=== PATIENT | female | born 1950 | race Two or more races ===

== ENCOUNTER 2019-03-07 10:10 | Emergency (ER) | payer MEDICAID ==
[~2019-03-07] VITALS: Ht 149.9 cm; Wt 62.5 kg
[~2019-03-07 10:10] MED LIST: DIAZ5TAB PO; GLUC100017 PO; IBUP-1985 PO; MECL-111 PO; MESA400C2 PO; ONDA4TAB6 PO; SIMV20TA PO; [UNRECOGNIZED DRUG - CODE] PO
[2019-03-07 10:51] LABS: CLARITY,URINE CLEAR (Clear); COLOR,URINE YELLOW (Yellow); GLUCOSE, URINE 500 mg/dl (Neg); KETONES,URINE NEGATIVE (Neg); LEUKOCYTE ESTERASE ,URINE NEGATIVE (Neg); NITRITES, URINE NEGATIVE (Neg); OCCULT BLOOD,URINE SMALL (Neg); PROTEIN,URINE >=300 mg/dl (Neg); UROBILINOGEN,URINE 0.2 E.U/dL (0.2-1.0)
[2019-03-07 10:55] LABS: UA COLLECTION TYPE CLN CATCH MIDSTREAM
[2019-03-07 10:57] LABS: BASOPHILS % (AUTO) 0.1 % (0-1); EOSINOPHILS # (AUTO) 0.1 X10'3 (0-0.9); EOSINOPHILS % (AUTO) 0.9 % (0-6); HEMATOCRIT 29.9 % (35.0-45.0); HEMOGLOBIN 10.4 g/dl (12.0-16.0); LYMPHOCYTES # (AUTO) 0.8 X10'3 (1.1-4.8); LYMPHOCYTES % (AUTO) 8.3 % (21-51); MEAN CORPUSCULAR HEMOGLOBIN 33.3 PG (27.0-31.0); MEAN CORPUSCULAR HGB CONC 34.7 g/dL (33.0-36.5); MEAN CORPUSCULAR VOLUME 95.8 FL (78-98); MEAN PLATELET VOLUME 8.4 FL (7.4-10.4); MONOCYTES # (AUTO) 0.1 X10'3 (0-0.9); MONOCYTES % (AUTO) 1.1 % (2-12); NEUTROPHILS # (AUTO) 8.7 X10'3 (1.8-7.7); NEUTROPHILS % (AUTO) 89.6 % (42-75); PLATELET COUNT 224 X10'3 (140-440); RED BLOOD COUNT 3.12 X10'6 (4.20-5.60); RED CELL DISTRIBUTION WIDTH 13.7 % (11.5-14.5); WHITE BLOOD COUNT 9.7 X10'3 (4.5-11.0)
[2019-03-07 10:59] LABS: BACTERIA,URINE 2+ /HPF (Neg); SQUAMOUS EPITHELIAL CELL,UR MODERATE /LPF (FEW)
[2019-03-07 11:11] LABS: ALANINE AMINOTRANSFERASE 36 U/L (12-78); ALBUMIN/GLOBULIN RATIO 0.5 (1.1-1.5); ALKALINE PHOSPHATASE 191 IU/L (46-116); AMYLASE 74 U/L (25-115); ANION GAP 8 (8-16); ASPARTATE AMINO TRANSFERASE 38 U/L (10-37); BILIRUBIN,TOTAL 0.4 MG/DL (0.1-1.0); BLOOD UREA NITROGEN 39 MG/DL (7-18); BUN/CREATININE RATIO 24.2 (6.6-38.0); CALCIUM 8.9 MG/DL (8.5-10.1); CHLORIDE 106 MMOL/L (99-107); CREATININE 1.61 MG/DL (0.40-0.90); GLUCOSE 286 MG/DL (70-104); LIPASE 617 U/L (73-393); POTASSIUM 4.3 MMOL/L (3.5-5.1); SODIUM 135 MMOL/L (135-145); TOTAL CARBON DIOXIDE 21.5 MMOL/L (24-32); TOTAL PROTEIN 8.7 G/DL (6.4-8.2); eGFR 32 ML/MIN
[2019-03-07] MEDS ORDERED: ondansetron/PF 4mg/2ml inj IV ONE (12:05)
[2019-03-07] MEDS ORDERED: normal saline 1000ML IV soln IVB ONE (12:05)
[2019-03-07] MEDS ORDERED: morphine 4 MG/ML inj SYRINge IV PRN (12:05)
[2019-03-07] MEDS ORDERED: METF-950 PO (12:33)
[2019-03-07] MEDS ORDERED: FURO20TA4 PO (12:34)
[2019-03-07] MEDS ORDERED: MECL12.584 PO (12:45)
[2019-03-07 14:10] VITALS: BP 146/71
[2019-03-08] MEDS ORDERED: LOSA50TA64 PO (14:20)
== END 2019-03-07 14:30 | disposition home or self-care (01) ==
LOC: ER 10:10
DX: E11.43 Type 2 diabetes mellitus with diabetic autonomic (poly)neuropathy (principal); K31.84 Gastroparesis; K85.90 Acute pancreatitis without necrosis or infection, unspecified; E78.00 Pure hypercholesterolemia, unspecified; I10 Essential (primary) hypertension; Z90.49 Acquired absence of other specified parts of digestive tract; Z90.710 Acquired absence of both cervix and uterus; Z98.890 Other specified postprocedural states; Z79.84 Long term (current) use of oral hypoglycemic drugs; Z79.899 Other long term (current) drug therapy
CPT/HCPCS: 36415; 74176; 80053; 81001; 82150; 83690; 85025; 85610; 87088; 96361; 96374; 96375; 99284; J2270; J2405; J7030

== ENCOUNTER 2019-03-08 10:51 | Inpatient (IN) | payer MEDICAID ==
[~2019-03-08] VITALS: Ht 149.9 cm; Wt 57.4 kg
[~2019-03-08 10:51] MED LIST changes: +FURO20TA4 PO; +MECL12.584 PO; +METF-950 PO
[2019-03-08] MEDS ORDERED: acetaminophen 325mg tablet PO STA (11:19)
[2019-03-08] MEDS ORDERED: normal saline 1000ML IV soln IV ONE (11:20)
[2019-03-08] MEDS ORDERED: CefTRIAXone 2gm/D5W 50ml 50 ML IV ONE (11:20)
[2019-03-08 11:32] LABS: BASOPHILS % (AUTO) 0.3 % (0-1); EOSINOPHILS % (AUTO) 0 % (0-6); HEMATOCRIT 26.9 % (35.0-45.0); HEMOGLOBIN 9.4 g/dl (12.0-16.0); LYMPHOCYTES # (AUTO) 0.5 X10'3 (1.1-4.8); MEAN CORPUSCULAR HEMOGLOBIN 33.7 PG (27.0-31.0); MEAN CORPUSCULAR HGB CONC 34.8 g/dL (33.0-36.5); MEAN CORPUSCULAR VOLUME 96.8 FL (78-98); MEAN PLATELET VOLUME 8.3 FL (7.4-10.4); MONOCYTES % (AUTO) 0.7 % (2-12); NEUTROPHILS # (AUTO) 5.9 X10'3 (1.8-7.7); PLATELET COUNT 169 X10'3 (140-440); RED BLOOD COUNT 2.78 X10'6 (4.20-5.60); RED CELL DISTRIBUTION WIDTH 14.1 % (11.5-14.5); WHITE BLOOD COUNT 6.4 X10'3 (4.5-11.0)
[2019-03-08 11:40] LABS: ALANINE AMINOTRANSFERASE 71 U/L (12-78); ALBUMIN 2.7 G/DL (3.4-5.0); ALBUMIN/GLOBULIN RATIO 0.5 (1.1-1.5); ALKALINE PHOSPHATASE 257 IU/L (46-116); ANION GAP 12 (8-16); ASPARTATE AMINO TRANSFERASE 60 U/L (10-37); BILIRUBIN,TOTAL 0.5 MG/DL (0.1-1.0); BLOOD UREA NITROGEN 40 MG/DL (7-18); BUN/CREATININE RATIO 21.4 (6.6-38.0); CALCIUM 8.6 MG/DL (8.5-10.1); CHLORIDE 110 MMOL/L (99-107); CREATININE 1.87 MG/DL (0.40-0.90); GLUCOSE 230 MG/DL (70-104); LIPASE 383 U/L (73-393); POTASSIUM 4.3 MMOL/L (3.5-5.1); SODIUM 140 MMOL/L (135-145); TOTAL CARBON DIOXIDE 17.6 MMOL/L (24-32); TOTAL PROTEIN 7.8 G/DL (6.4-8.2); eGFR 27 ML/MIN
[2019-03-08] MEDS ORDERED: ondansetron/PF 4mg/2ml inj IV ONE (11:40)
[2019-03-08] MEDS ORDERED: morphine 4 MG/ML inj SYRINge IV PRN (11:40)
[2019-03-08 13:00] LABS: PARTIAL THROMBOPLASTIN TIME 27 SECONDS (22-32)
[2019-03-08 14:16] LABS: CLARITY,URINE CLOUDY (Clear); COLOR,URINE YELLOW (Yellow); GLUCOSE, URINE 250 mg/dl (Neg); KETONES,URINE NEGATIVE (Neg); LEUKOCYTE ESTERASE ,URINE TRACE (Neg); NITRITES, URINE NEGATIVE (Neg); OCCULT BLOOD,URINE SMALL (Neg); PH,URINE 5.5 (4.8-8.0); PROTEIN,URINE >=300 mg/dl (Neg); UA COLLECTION TYPE CLN CATCH MIDSTREAM
[2019-03-08] MEDS ORDERED: LOSA50TA64 PO (14:20)
[2019-03-08 14:26] LABS: COARSE GRANULAR CAST >30 /LPF (NEGATIVE); SQUAMOUS EPITHELIAL CELL,UR MANY /LPF (FEW)
[2019-03-08 14:28] LABS: BACTERIA,URINE 2+ /HPF (Neg); MUCUS STRANDS FEW /LPF (Neg); RENAL CELLS, URINE FEW /HPF; TRANSITIONAL EPI CELLS,URINE FEW /HPF
--- NOTE | 2019-03-08 15:05 | NUR ---
PT RESTING IN BED ,DAUGHTER AT BEDSIDE.
[2019-03-08] MEDS ORDERED: ondansetron/PF 4mg/2ml inj IV PRN (16:05)
--- NOTE | 2019-03-08 16:13 | NUR ---
PT RESTING IN BED,NO DISTRESS NOTED.PT FAMILY AT BEDSIDE.VITALS STABLE.WAITING FOR HOSPITALIST.
[2019-03-08] MEDS ORDERED: pantoprazole 40 MG vial IV ONE (16:25)
[2019-03-08] MEDS: normal saline 1000ml 1,000 ML IV SCH (17:06)
--- NOTE | 2019-03-08 17:24 | NUR ---
relieving RN for break, pt is resting quietly
[2019-03-08 18:27] LABS: % IRON SATURATION 50 % (11-46); IRON 117 UG/DL (49-151); TOTAL IRON BINDING CAPACITY 235 UG/DL (259-388)
--- NOTE | 2019-03-08 19:33 | NUR ---
pt bld sugar checked 182,family at bedside.
--- NOTE | 2019-03-08 20:05 | NUR ---
I received report from Anny LAND and had the opportunity to go over plan of care and ask questions. Patient arrived at 2004 via gurney, Multiple family members at bedside. Daughter in law translates for patient. Granddaughter is staying the night
[2019-03-08 20:30] VITALS: BP 142/67
[2019-03-08] MEDS ORDERED: pneumococcal 23-VAL P-sac vacc 25 mcg/0.5ml vial IMVAC ONE (21:10)
[2019-03-08 21:16] LABS: HEMOGLOBIN A1C 7.6 % (4.5-6.2)
[2019-03-09 00:30] VITALS: BP 162/82
[2019-03-09] MEDS ORDERED: CefTRIAXone/D5W-Rocephin 1gm 50 ML IV ONE (00:30)
--- NOTE | 2019-03-09 01:37 | NUR ---
Dr natalio ovalle Addendum: 03/09/19 at 0137 by Goyo Johnson RN Amended: Links added.
[2019-03-09] MEDS: normal saline 1000ml 1,000 ML IV SCH ×2 (02:05→03:14)
[2019-03-09 04:45] LABS: BASOPHILS % (AUTO) 0.2 % (0-1); EOSINOPHILS % (AUTO) 0.1 % (0-6); HEMATOCRIT 22.1 % (35.0-45.0); HEMOGLOBIN 7.7 g/dl (12.0-16.0); LYMPHOCYTES # (AUTO) 1.2 X10'3 (1.1-4.8); LYMPHOCYTES % (AUTO) 7.6 % (21-51); MEAN CORPUSCULAR HEMOGLOBIN 33.7 PG (27.0-31.0); MEAN CORPUSCULAR VOLUME 96.2 FL (78-98); MONOCYTES # (AUTO) 0.9 X10'3 (0-0.9); MONOCYTES % (AUTO) 5.8 % (2-12); NEUTROPHILS # (AUTO) 13.6 X10'3 (1.8-7.7); NEUTROPHILS % (AUTO) 86.3 % (42-75); PLATELET COUNT 134 X10'3 (140-440); RED BLOOD COUNT 2.29 X10'6 (4.20-5.60); RED CELL DISTRIBUTION WIDTH 13.8 % (11.5-14.5); WHITE BLOOD COUNT 15.8 X10'3 (4.5-11.0)
[2019-03-09 04:54] LABS: ALBUMIN 1.9 G/DL (3.4-5.0); ANION GAP 7 (8-16); BLOOD UREA NITROGEN 34 MG/DL (7-18); BUN/CREATININE RATIO 23.4 (6.6-38.0); CALCIUM 7.9 MG/DL (8.5-10.1); CHLORIDE 113 MMOL/L (99-107); CREATININE 1.45 MG/DL (0.40-0.90); GLUCOSE 163 MG/DL (70-104); POTASSIUM 4.2 MMOL/L (3.5-5.1); SODIUM 140 MMOL/L (135-145); eGFR 36 ML/MIN
--- NOTE | 2019-03-09 06:41 | NUR ---
Patient in room [facility]. I have received report from SHANDA Nance and had the opportunity to ask questions and assume patient care.
--- NOTE | 2019-03-09 06:42 | NUR ---
Problems reprioritized. Patient report given, questions answered & plan of care reviewed with Mari LAND.
[2019-03-09 07:00] VITALS: BP 168/72
[2019-03-09] MEDS ORDERED: pneumococcal 23-VAL P-sac vacc 25 mcg/0.5ml vial IMVAC ONE (10:00)
[2019-03-09 11:00] VITALS: BP 168/68
[2019-03-09] MEDS ORDERED: MESSAGE TO PHARMACY PO ONE (11:30)
[2019-03-09] MEDS ORDERED: dextrose 50%-water 50ml dispensing syringe IV PRN ×2 (11:30)
[2019-03-09] MEDS ORDERED: glucagon, human recombinant 1mg kit SUBCUT PRN (11:30)
[2019-03-09] MEDS ORDERED: dextrose ORAL solution 15 GM/59 ML bottle PO PRN ×2 (11:30)
[2019-03-09] MEDS ORDERED: furosemide 20 MG/2 ML vial IV ONE (11:35)
[2019-03-09] MEDS: CefTRIAXone/D5W-Rocephin 1gm 50 ML IV SCH (12:02)
[2019-03-09] MEDS: losartan 50mg tablet PO SCH (12:13)
--- NOTE | 2019-03-09 14:31 | NUR ---
DM consult: Pt seen at bedside with daughter in translating as pt is only [place] speaking. Daughter in states pt takes her DM meds per rx and usually checks her BG levels however left her glucometer in [place] the beginning of January so hasn't been checking her BG levels. Informed the importance of checking BG levels for DM management. Family provided with written DM ed in [place]e along with referral to outpatient DM class and RD contact information. Malnutrition consult: Per daughter in patient's UBW is 60-65 kg and reports 5 kg wt loss in 2 months d/t decreased appetite with unknown etiology. Current documented wt is 57.4 kg. If pt truly lost 5 kg this is severe wt loss of 8% in two months. Daughter in states pt was improving [employer]. Lunch tray visible at RD visit noted to be 100% consumed. Pt with no visible fat or muscle wasting and with no documented decrease in muscle strength or edema. Pt currently does not meet criteria for malnutrition. Will continue to follow. Addendum: 03/09/19 at [address] Amended: Links added.
--- NOTE | 2019-03-09 18:13 | NUR ---
Problems reprioritized. Patient report given, questions answered & plan of care reviewed with SHANDA Almonte.
[2019-03-09] MEDS: insulin Lispro (HumaLOG) vial - multi-dose SQ SCH (18:31)
[2019-03-09] MEDS ORDERED: acetaminophen 325mg tablet PO PRN (19:10)
[2019-03-09 20:00] VITALS: BP 154/64
[2019-03-09] MEDS: atorvastatin 10mg tablet PO SCH (20:38)
[2019-03-09] MEDS: insulin glargine (Lantus) pen - multi-dose SQ SCH (20:43)
[2019-03-10] VITALS: BP 144/58
[2019-03-10 05:28] LABS: BASOPHILS # (AUTO) 0.1 X10'3 (0-0.2); BASOPHILS % (AUTO) 0.5 % (0-1); EOSINOPHILS # (AUTO) 0.2 X10'3 (0-0.9); EOSINOPHILS % (AUTO) 1.3 % (0-6); HEMOGLOBIN 7.8 g/dl (12.0-16.0); LYMPHOCYTES # (AUTO) 1.5 X10'3 (1.1-4.8); LYMPHOCYTES % (AUTO) 13.6 % (21-51); MEAN CORPUSCULAR HEMOGLOBIN 33.3 PG (27.0-31.0); MEAN CORPUSCULAR HGB CONC 35.4 g/dL (33.0-36.5); MEAN CORPUSCULAR VOLUME 94.2 FL (78-98); MONOCYTES % (AUTO) 8.8 % (2-12); NEUTROPHILS # (AUTO) 8.6 X10'3 (1.8-7.7); NEUTROPHILS % (AUTO) 75.8 % (42-75); PLATELET COUNT 152 X10'3 (140-440); RED BLOOD COUNT 2.34 X10'6 (4.20-5.60); RED CELL DISTRIBUTION WIDTH 13.6 % (11.5-14.5); WHITE BLOOD COUNT 11.3 X10'3 (4.5-11.0)
[2019-03-10 05:31] LABS: GLUCOSE 133 MG/DL (70-104)
[2019-03-10 05:32] LABS: ALBUMIN 1.9 G/DL (3.4-5.0); ANION GAP 9 (8-16); BLOOD UREA NITROGEN 30 MG/DL (7-18); BUN/CREATININE RATIO 21.3 (6.6-38.0); CALCIUM 8.3 MG/DL (8.5-10.1); CHLORIDE 112 MMOL/L (99-107); CREATININE 1.41 MG/DL (0.40-0.90); POTASSIUM 3.8 MMOL/L (3.5-5.1); SODIUM 141 MMOL/L (135-145); TOTAL CARBON DIOXIDE 20.3 MMOL/L (24-32); eGFR 37 ML/MIN
[2019-03-10 07:15] VITALS: BP 167/69
[2019-03-10] MEDS: CefTRIAXone/D5W-Rocephin 1gm 50 ML IV SCH (07:26)
[2019-03-10] MEDS: losartan 50mg tablet PO SCH (07:26)
[2019-03-10 11:31] VITALS: BP 172/72
--- NOTE | 2019-03-10 11:33 | NUR ---
aware of BP. Addendum: 03/10/19 at 1133 by Evelyn Nicolas RN Amended: Links added.
[2019-03-10] MEDS: insulin Lispro (HumaLOG) vial - multi-dose SQ SCH ×2 (13:51→18:48)
[2019-03-10 18:00] VITALS: BP 206/82
--- NOTE | 2019-03-10 18:10 | NUR ---
Problems reprioritized. Patient report given, questions answered & plan of care reviewed with SHANDA Guo.
[2019-03-10] MEDS ORDERED: amLODIPine 5mg tablet PO ONE (18:35)
--- NOTE | 2019-03-10 18:40 | NUR ---
Mitul AMBROCIO made aware of pt 206/82 blood pressure. put in order for one time med, will give and continue to monitor closely.
--- NOTE | 2019-03-10 19:43 | NUR ---
Patient in room [facility]. I have received report from Evelyn LAND and had the opportunity to ask questions and assume patient care.
[2019-03-10] MEDS: atorvastatin 10mg tablet PO SCH (21:04)
[2019-03-10] MEDS: insulin glargine (Lantus) pen - multi-dose SQ SCH (21:14)
[2019-03-10 21:17] VITALS: BP 178/71
[2019-03-11] VITALS: BP 158/58
[2019-03-11 05:30] LABS: ANION GAP 10 (8-16); BLOOD UREA NITROGEN 29 MG/DL (7-18); BUN/CREATININE RATIO 20.9 (6.6-38.0); CALCIUM 8.5 MG/DL (8.5-10.1); CHLORIDE 112 MMOL/L (99-107); CREATININE 1.39 MG/DL (0.40-0.90); GLUCOSE 91 MG/DL (70-104); SODIUM 143 MMOL/L (135-145); TOTAL CARBON DIOXIDE 21.5 MMOL/L (24-32); eGFR 37 ML/MIN
[2019-03-11 05:44] LABS: BASOPHILS % (AUTO) 0.5 % (0-1); EOSINOPHILS # (AUTO) 0.2 X10'3 (0-0.9); HEMATOCRIT 24.3 % (35.0-45.0); HEMOGLOBIN 8.5 g/dl (12.0-16.0); LYMPHOCYTES # (AUTO) 1.7 X10'3 (1.1-4.8); LYMPHOCYTES % (AUTO) 21.4 % (21-51); MEAN CORPUSCULAR HEMOGLOBIN 33.5 PG (27.0-31.0); MEAN CORPUSCULAR HGB CONC 35.1 g/dL (33.0-36.5); MEAN CORPUSCULAR VOLUME 95.5 FL (78-98); MEAN PLATELET VOLUME 9.2 FL (7.4-10.4); MONOCYTES # (AUTO) 0.8 X10'3 (0-0.9); MONOCYTES % (AUTO) 10.2 % (2-12); NEUTROPHILS # (AUTO) 5.3 X10'3 (1.8-7.7); NEUTROPHILS % (AUTO) 65.9 % (42-75); PLATELET COUNT 168 X10'3 (140-440); RED BLOOD COUNT 2.55 X10'6 (4.20-5.60)
--- NOTE | 2019-03-11 06:10 | NUR ---
Patient in room [facility]. I have received report from SHANDA Guo and had the opportunity to ask questions and assume patient care.
[2019-03-11 06:30] VITALS: BP 131/74
--- NOTE | 2019-03-11 06:34 | NUR ---
Problems reprioritized. Patient report given, questions answered & plan of care reviewed with Cyndi RN.
[2019-03-11] MEDS: losartan 50mg tablet PO SCH (08:40)
[2019-03-11] MEDS: amLODIPine 5mg tablet PO SCH (08:40)
[2019-03-11] MEDS: CefTRIAXone/D5W-Rocephin 1gm 50 ML IV SCH (08:40)
[2019-03-11 11:00] VITALS: BP 152/68
[2019-03-11] MEDS: insulin Lispro (HumaLOG) vial - multi-dose SQ SCH ×2 (13:39→18:22)
[2019-03-11 18:00] VITALS: BP 143/67
--- NOTE | 2019-03-11 18:05 | NUR ---
Problems reprioritized. Patient report given, questions answered & plan of care reviewed with SHANDA Guo.
--- NOTE | 2019-03-11 18:30 | NUR ---
Patient in room [facility]. I have received report from Cyndi LAND and had the opportunity to ask questions and assume patient care.
[2019-03-11] MEDS: atorvastatin 10mg tablet PO SCH (20:10)
[2019-03-11] MEDS: lactobacillus rhamnosus 10,000 MMU CELLS/CAPSULE PO SCH (20:10)
[2019-03-11] MEDS: insulin glargine (Lantus) pen - multi-dose SQ SCH (21:19)
[2019-03-12] VITALS: BP 144/60
[2019-03-12 05:36] LABS: BASOPHILS % (AUTO) 0.6 % (0-1); EOSINOPHILS # (AUTO) 0.1 X10'3 (0-0.9); EOSINOPHILS % (AUTO) 1.9 % (0-6); HEMATOCRIT 24.9 % (35.0-45.0); HEMOGLOBIN 8.7 g/dl (12.0-16.0); LYMPHOCYTES # (AUTO) 1.8 X10'3 (1.1-4.8); LYMPHOCYTES % (AUTO) 23.4 % (21-51); MEAN CORPUSCULAR HEMOGLOBIN 33.3 PG (27.0-31.0); MEAN CORPUSCULAR HGB CONC 34.9 g/dL (33.0-36.5); MEAN CORPUSCULAR VOLUME 95.4 FL (78-98); MEAN PLATELET VOLUME 8.8 FL (7.4-10.4); MONOCYTES # (AUTO) 0.9 X10'3 (0-0.9); MONOCYTES % (AUTO) 11.3 % (2-12); NEUTROPHILS # (AUTO) 4.8 X10'3 (1.8-7.7); NEUTROPHILS % (AUTO) 62.8 % (42-75); PLATELET COUNT 178 X10'3 (140-440); RED BLOOD COUNT 2.61 X10'6 (4.20-5.60); RED CELL DISTRIBUTION WIDTH 13.4 % (11.5-14.5); WHITE BLOOD COUNT 7.7 X10'3 (4.5-11.0)
[2019-03-12 05:41] LABS: ALBUMIN 2.1 G/DL (3.4-5.0); ANION GAP 7 (8-16); BLOOD UREA NITROGEN 28 MG/DL (7-18); BUN/CREATININE RATIO 21.7 (6.6-38.0); CALCIUM 8.9 MG/DL (8.5-10.1); CHLORIDE 111 MMOL/L (99-107); CREATININE 1.29 MG/DL (0.40-0.90); GLUCOSE 121 MG/DL (70-104); POTASSIUM 3.9 MMOL/L (3.5-5.1); SODIUM 141 MMOL/L (135-145); TOTAL CARBON DIOXIDE 22.7 MMOL/L (24-32); eGFR 41 ML/MIN
--- NOTE | 2019-03-12 06:10 | NUR ---
Patient in room [facility]. I have received report from SHANDA Guo and had the opportunity to ask questions and assume patient care.
--- NOTE | 2019-03-12 06:23 | NUR ---
Problems reprioritized. Patient report given, questions answered & plan of care reviewed with Cyndi RN.
[2019-03-12 06:30] VITALS: BP 149/69
[2019-03-12] MEDS ORDERED: losartan 50mg tablet PO SCH (08:00)
[2019-03-12] MEDS: lactobacillus rhamnosus 10,000 MMU CELLS/CAPSULE PO SCH (08:32)
[2019-03-12] MEDS: amLODIPine 5mg tablet PO SCH (08:32)
[2019-03-12] MEDS: CefTRIAXone/D5W-Rocephin 1gm 50 ML IV SCH ×2 (08:32→08:45)
[2019-03-12] MEDS: insulin Lispro (HumaLOG) vial - multi-dose SQ SCH (08:37)
[2019-03-12 09:45] LABS: PLATELET ESTIMATE NORMAL; POLYCHROMASIA 1+; TOTAL CELLS COUNTED 100
[2019-03-12 09:46] LABS: TOXIC GRANULATION 1+
[2019-03-12] MEDS ORDERED: AMLO10TA PO (10:41)
[2019-03-12] MEDS ORDERED: LOSA50TA64 PO (10:41)
[2019-03-12] MEDS ORDERED: LACT1CAP26 PO (10:41)
[2019-03-12] MEDS ORDERED: CEFD300C3 PO (10:41)
--- NOTE | 2019-03-12 11:15 | NUR ---
DC inst provided to pt/family. IV previously DC'd. All belongings sent w/pt. WC to front lobby.
== END 2019-03-12 11:15 | disposition home or self-care (01) | DRG 720 ==
LOC: ER 10:52 → SUR 3N 20:07 → CMPBEDREQ 22:32
PROVIDERS: ADMIT Internal Medicine; ATTEND Family Medicine
PROC: 3E0234Z Introduction of Serum, Toxoid and Vaccine into Muscle, Percutaneous Approach (ICD-10-PCS; principal; 2019-03-09)
DX: A41.51 Sepsis due to Escherichia coli [E. coli] (principal); N17.9 Acute kidney failure, unspecified; E11.22 Type 2 diabetes mellitus with diabetic chronic kidney disease; D64.9 Anemia, unspecified; E78.00 Pure hypercholesterolemia, unspecified; E78.5 Hyperlipidemia, unspecified; K52.9 Noninfective gastroenteritis and colitis, unspecified; I12.9 Hypertensive chronic kidney disease with stage 1 through stage 4 chronic kidney disease, or unspecified chronic kidney disease; N18.9 Chronic kidney disease, unspecified; R74.0 Nonspecific elevation of levels of transaminase and lactic acid dehydrogenase [LDH]; N39.0 Urinary tract infection, site not specified; Z90.710 Acquired absence of both cervix and uterus; Z23 Encounter for immunization; Z90.49 Acquired absence of other specified parts of digestive tract; Z79.899 Other long term (current) drug therapy; Z79.84 Long term (current) use of oral hypoglycemic drugs
CPT/HCPCS: 36415; 71045; 80048; 80053; 81001; 82948; 83036; 83540; 83550; 83605; 83690; 83735; 84145; 85025; 85610; 85730; 87040; 87077; 87081; 87186; 93005; 96365; 96375; 99285; G0378; J0696; J1815; J1940; J2270; J2405; J7030

== ENCOUNTER 2019-08-15 04:14 | Emergency (ER) | payer MEDICAID ==
[~2019-08-15] VITALS: Ht 149.9 cm; Wt 61.4 kg
[~2019-08-15 04:14] MED LIST changes: +AMLO10TA PO; -DIAZ5TAB PO; -GLUC100017 PO; -IBUP-1985 PO; +LACT1CAP26 PO; +LOSA50TA64 PO; -MECL-111 PO; -MESA400C2 PO; -ONDA4TAB6 PO; -[UNRECOGNIZED DRUG - CODE] PO
--- NOTE | 2019-08-15 05:16 | NUR ---
Patient to Radiology
[2019-08-15 05:50] LABS: BASOPHILS % (AUTO) 0.5 % (0-1); EOSINOPHILS # (AUTO) 0.1 X10'3 (0-0.9); EOSINOPHILS % (AUTO) 1.9 % (0-6); HEMATOCRIT 23.8 % (35.0-45.0); HEMOGLOBIN 8.5 g/dl (12.0-16.0); LYMPHOCYTES # (AUTO) 1.3 X10'3 (1.1-4.8); LYMPHOCYTES % (AUTO) 18.5 % (21-51); MEAN CORPUSCULAR HGB CONC 35.7 g/dL (33.0-36.5); MEAN CORPUSCULAR VOLUME 95.3 FL (78-98); MEAN PLATELET VOLUME 7.8 FL (7.4-10.4); MONOCYTES # (AUTO) 0.6 X10'3 (0-0.9); MONOCYTES % (AUTO) 8.1 % (2-12); PLATELET COUNT 206 X10'3 (140-440); RED CELL DISTRIBUTION WIDTH 12.8 % (11.5-14.5)
[2019-08-15 06:06] LABS: ALANINE AMINOTRANSFERASE 34 U/L (12-78); ALBUMIN 2.7 G/DL (3.4-5.0); ALBUMIN/GLOBULIN RATIO 0.6 (1.1-1.5); ALKALINE PHOSPHATASE 132 IU/L (46-116); ANION GAP 8 (8-16); ASPARTATE AMINO TRANSFERASE 24 U/L (10-37); BILIRUBIN,TOTAL 0.3 MG/DL (0.1-1.0); BLOOD UREA NITROGEN 32 MG/DL (7-18); BUN/CREATININE RATIO 21.3 (6.6-38.0); CALCIUM 8.3 MG/DL (8.5-10.1); CHLORIDE 109 MMOL/L (99-107); GLUCOSE 170 MG/DL (70-104); POTASSIUM 5.2 MMOL/L (3.5-5.1); SODIUM 140 MMOL/L (135-145); TOTAL CARBON DIOXIDE 23.1 MMOL/L (24-32); TOTAL PROTEIN 7.4 G/DL (6.4-8.2); eGFR 34 ML/MIN
[2019-08-15 07:06] LABS: CLARITY,URINE CLEAR (Clear); COLOR,URINE STRAW (Yellow); GLUCOSE, URINE 100 mg/dl (Neg); KETONES,URINE NEGATIVE (Neg); LEUKOCYTE ESTERASE ,URINE NEGATIVE (Neg); NITRITES, URINE NEGATIVE (Neg); OCCULT BLOOD,URINE SMALL (Neg); PROTEIN,URINE >=300 mg/dl (Neg); UROBILINOGEN,URINE 0.2 E.U/dL (0.2-1.0)
[2019-08-15 07:09] LABS: UA COLLECTION TYPE CLN CATCH MIDSTREAM
[2019-08-15 07:12] LABS: BACTERIA,URINE 2+ /HPF (Neg); MUCUS STRANDS NONE SEEN /LPF (Neg); RBC,URINE 0-2 /HPF (0-2); SQUAMOUS EPITHELIAL CELL,UR FEW /LPF (FEW)
--- NOTE | 2019-08-15 07:48 | NUR ---
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
--- NOTE | 2019-08-15 08:03 | NUR ---
pt returns from ct
[2019-08-15] MEDS ORDERED: CefTRIAXone/D5W-Rocephin 1gm 50 ML IV ONE (08:10)
[2019-08-15] MEDS ORDERED: ondansetron/PF 4mg/2ml inj IV ONE ×2 (08:45→10:55)
[2019-08-15] MEDS ORDERED: meclizine 12.5mg tablet PO ONE (08:45)
[2019-08-15] MEDS ORDERED: MECL-111 PO (10:50)
[2019-08-15] MEDS ORDERED: normal saline 1000ML IV soln IVB ONE (10:55)
[2019-08-15] MEDS ORDERED: NITR100C6 PO (10:59)
[2019-08-15 12:11] VITALS: BP 182/84
== END 2019-08-15 12:05 | disposition home or self-care (01) ==
LOC: ER 04:15
DX: R42 Dizziness and giddiness (principal); R11.2 Nausea with vomiting, unspecified; E78.00 Pure hypercholesterolemia, unspecified; I10 Essential (primary) hypertension; E11.9 Type 2 diabetes mellitus without complications; Z90.49 Acquired absence of other specified parts of digestive tract; Z98.890 Other specified postprocedural states; Z90.710 Acquired absence of both cervix and uterus; Z79.899 Other long term (current) drug therapy
CPT/HCPCS: 36415; 70450; 71046; 74176; 80053; 81001; 83605; 85025; 87040; 87088; 96361; 96365; 96375; 96376; 99284; J0696; J2405; J7030; J8597

== ENCOUNTER 2020-01-25 11:50 | Outpatient (CLI) | payer MEDICAID ==
[~2020-01-25 11:50] MED LIST changes: +MECL-159 PO; +MECL-183 PO; -MECL12.584 PO; +NITR100C6 PO
== END 2020-01-25 23:59 | disposition home or self-care (01) ==
LOC: LAB 11:50
PROVIDERS: ATTEND Internal Medicine Critical Care Medicine
DX: N05.9 Unspecified nephritic syndrome with unspecified morphologic changes (principal)
CPT/HCPCS: 36415

== ENCOUNTER 2022-01-27 08:16 | Day surgery (SDC) | payer MEDICAID ==
[~2022-01-27] VITALS: Ht 149.9 cm; Wt 58.2 kg
[2022-01-27] VITALS (8 sets, daily range): BP systolic 154–165; BP diastolic 66–75
[~2022-01-27 08:16] MED LIST changes: -MECL-183 PO; +MECL-226 PO; +METF-1203 PO; -METF-950 PO
[2022-01-27] MEDS ORDERED: MEGE40TA5 PO (08:45)
[2022-01-27] MEDS ORDERED: FURO80TA3 PO (08:45)
[2022-01-27] MEDS ORDERED: HYDR100T27 PO (08:45)
[2022-01-27] MEDS ORDERED: SERT-433 PO (08:45)
[2022-01-27] MEDS ORDERED: CARV25TA2 PO (08:45)
[2022-01-27] MEDS ORDERED: OMEP40CA21 PO (08:45)
[2022-01-27] MEDS ORDERED: METO5TAB98 PO (08:45)
[2022-01-27] MEDS ORDERED: ONDA4TAB12 (08:45)
[2022-01-27] MEDS ORDERED: PHO667C PO (08:45)
[2022-01-27] MEDS ORDERED: ASPI81TA52 PO (08:47)
[2022-01-27] MEDS ORDERED: CALC-1215 PO (08:47)
[2022-01-27] MEDS ORDERED: MECL-159 PO (08:47)
[2022-01-27] MEDS ORDERED: LIDOcaine 1%/PF 5ML 10 MG/ML VIAL SQ ONE (08:55)
== END 2022-01-27 11:15 | disposition home or self-care (01) ==
LOC: SSTAY O 08:16
PROVIDERS: ATTEND Radiology Vascular & Interventional Radiology
DX: J90 Pleural effusion, not elsewhere classified (principal); E78.00 Pure hypercholesterolemia, unspecified; I11.0 Hypertensive heart disease with heart failure; I50.9 Heart failure, unspecified; E11.9 Type 2 diabetes mellitus without complications; Z90.49 Acquired absence of other specified parts of digestive tract; Z98.890 Other specified postprocedural states; Z90.710 Acquired absence of both cervix and uterus; Z79.899 Other long term (current) drug therapy
CPT/HCPCS: 32555; Z7610